=== PATIENT | male | born 1945 | race African-American/Black ===

== ENCOUNTER 2017-08-17 22:06 | Inpatient (IN) | payer OTHER, MEDICAID ==
[~2017-08-17] VITALS: Ht 177.8 cm; Wt 91.2 kg
[2017-08-18] VITALS (7 sets, daily range): BP systolic 107–137; BP diastolic 61–79
[2017-08-18] MEDS ORDERED: HYDROCODONE/ACETAMINOPHEN 5/325MG TABLET PO STA (00:05)
[2017-08-18] MEDS ORDERED: ASPIRIN 81MG TABLET PO ONE (00:15)
[2017-08-18] MEDS ORDERED: NITROGLYCERIN OINT 1GM/INCH UDPKT TD ONE (00:15)
[2017-08-18] MEDS ORDERED: LABETALOL HCL 20MG/4ML CARPUJECT IV ONE (00:15)
[2017-08-18] MEDS ORDERED: LABETALOL 5MG/ML SYR 20 MG/4 ML SYRINGE IV SCH (00:22)
[2017-08-18 01:07] LABS: HEMATOCRIT. 38.6 % (42.0-52.0); HEMOGLOBIN. 13.2 g/dL (14.0-18.0); MEAN CORPUSCULAR HEMOGLOBIN 32.5 pg (28.0-32.0); MEAN CORPUSCULAR VOLUME 95.1 fL (80.0-94.0); MEAN PLATELET VOLUME 10.5 fl (7.4-10.4); PLATELET 169 x1000/uL (130-400); RED BLOOD CELL COUNT 4.06 mill/uL (4.7-6.1); RED CELL DISTRIBUTION WIDTH 13.2 % (11.6-14.6)
[2017-08-18 01:12] LABS: CHLORIDE 101 mEq/L (98-107)
[2017-08-18 01:13] LABS: INR 1.1; PROTHROMBIN TIME 11.4 sec (9.4-11.6)
[2017-08-18 01:16] LABS: ETHANOL BLOOD < 10 mg/dL
[2017-08-18 01:23] LABS: PLATELET ESTIMATE NORMAL
[2017-08-18] MEDS ORDERED: HYDRALAZINE 20MG/ML VIAL IV SCH (01:44)
[2017-08-18 02:03] LABS: CLARITY URINE CLOUDY (CLEAR); COLOR URINE YELLOW (YELLOW); KETONES URINE NEGATIVE (NEGATIVE); LEUKOCYTE ESTERASE URINE NEGATIVE (NEGATIVE); NITRITE URINE NEGATIVE (NEGATIVE); OCCULT BLOOD URINE NEGATIVE (NEGATIVE); PH URINE 7.5 (4.5-8.0); PROTEIN URINE NEGATIVE (NEGATIVE); SPECIFIC GRAVITY URINE 1.012 (1.005-1.030); UROBILINOGEN URINE 0.2 E.U./dL (0.2-1.0)
[2017-08-18 02:22] LABS: *AMPHETAMINES SCREEN URINE NEGATIVE (NEGATIVE)
[2017-08-18 02:23] LABS: *BARBITURATES SCREEN URINE NEGATIVE (NEGATIVE)
[2017-08-18 02:25] LABS: *BENZODIAZEPINES SCREEN URINE NEGATIVE (NEGATIVE)
[2017-08-18 02:26] LABS: *COCAINE SCREEN URINE NEGATIVE (NEGATIVE)
[2017-08-18 02:29] LABS: METHADONE URINE SCREEN NEGATIVE (NEGATIVE)
[2017-08-18 02:30] LABS: OPIATES URINE SCREEN NEGATIVE (NEGATIVE)
[2017-08-18 02:32] LABS: PHENCYCLIDINE URINE SCREEN NEGATIVE (NEGATIVE)
[2017-08-18 02:33] LABS: CANNABINOID URINE SCREEN NEGATIVE (NEGATIVE)
[2017-08-18] MEDS ORDERED: COLC0.6T66 PO (07:30)
[2017-08-18] MEDS ORDERED: GABA-529 MT (07:30)
[2017-08-18] MEDS ORDERED: ATOR10TA MT (07:30)
[2017-08-18] MEDS ORDERED: LORA10TA7 PO (07:32)
[2017-08-18] MEDS ORDERED: TRIA1TAB92 PO ×2 (07:32→08:11)
[2017-08-18] MEDS ORDERED: PIOG30TA10 PO (07:32)
[2017-08-18] MEDS ORDERED: METF10002 PO (07:32)
[2017-08-18] MEDS ORDERED: LOSA50TA20 PO (07:33)
[2017-08-18] MEDS ORDERED: ALLO100T PO (07:35)
[2017-08-18] MEDS ORDERED: LORATADINE 10MG TABLET PO SCH (09:00)
[2017-08-18] MEDS ORDERED: TRAMADOL 50MG TABLET PO PRN (09:00)
[2017-08-18] MEDS ORDERED: COLCHICINE 0.6MG TABLET PO SCH (09:00)
[2017-08-18] MEDS ORDERED: ALLOPURINOL 100 MG TABLET PO SCH (09:00)
[2017-08-18] MEDS ORDERED: ENOXAPARIN 40MG/0.4ML SYR SUBCUT SCH (09:00)
[2017-08-18] MEDS ORDERED: LOSARTAN POTASSIUM 50 MG TABLET PO SCH (09:00)
[2017-08-18] MEDS ORDERED: PIOGLITAZONE 30MG TABLET PO SCH (09:00)
[2017-08-18] MEDS: GABAPENTIN 100MG CAPSULE PO SCH ×3 (09:04→17:00)
[2017-08-18] MEDS: BLOOD SUGAR DIAGNOSTIC STRIP TEST SCH ×2 (11:59→17:20)
[2017-08-18] MEDS ORDERED: COLCHICINE 0.6MG TABLET PO PRN (13:15)
[2017-08-18] MEDS ORDERED: METFORMIN HCL 500MG TABLET PO SCH (17:50)
[2017-08-18] MEDS ORDERED: ATORVASTATIN CALCIUM 10MG TABLET PO SCH (21:00)
== END 2017-08-18 17:20 | disposition home or self-care (01) | DRG 305 ==
LOC: ER 22:06 → 6WST 08-18 01:44 → EDBEDREQ 08-18 01:46 → ENRESERV 08-18 02:58
PROVIDERS: ADMIT Internal Medicine Pulmonary Disease; ATTEND Internal Medicine Pulmonary Disease
DX: I16.0 Hypertensive urgency (principal); E11.9 Type 2 diabetes mellitus without complications; E78.5 Hyperlipidemia, unspecified; I10 Essential (primary) hypertension; J45.909 Unspecified asthma, uncomplicated; M10.9 Gout, unspecified; N40.0 Benign prostatic hyperplasia without lower urinary tract symptoms; Z79.84 Long term (current) use of oral hypoglycemic drugs; Z79.899 Other long term (current) drug therapy; Z91.19 Patient's noncompliance with other medical treatment and regimen; Z84.1 Family history of disorders of kidney and ureter; Z84.89 Family history of other specified conditions
CPT/HCPCS: 36415; 70450; 71045; 74176; 80053; 80305; 81003; 82962; 83880; 84484; 85025; 85610; 93005; G0482; J0360; J1650; J3490

== ENCOUNTER 2024-10-07 16:32 | Emergency (ER) | payer OTHER, MEDICAID ==
[~2024-10-07] VITALS: Ht 177.8 cm; Wt 88.0 kg
[~2024-10-07 16:32] MED LIST: ALLO100T PO; ATOR10TA MT; COLC0.6T66 PO; GABA-529 MT; LORA10TA7 PO; LOSA50TA41 PO; METF-416 PO; PIOG30TA10 PO; TRIA1TAB92 PO
[2024-10-07 16:35] VITALS: O2SAT 100
[2024-10-07 17:03] VITALS: TEMP 36.9
[2024-10-07 18:06] LABS: BASOPHILS % 0.8 % (0.0-2.0); EOSINOPHILS % 1.6 % (0.0-5.0); HEMATOCRIT. 36.6 % (42.0-52.0); LYMPHOCYTES % 22.3 % (20.0-50.0); MEAN CORPUSCULAR HGB CONC 32.7 g/dL (31.0-37.0); MEAN CORPUSCULAR VOLUME 97.7 fL (80.0-94.0); MEAN PLATELET VOLUME 9.7 fl (7.4-10.4); MONOCYTES % 9.9 % (2.0-8.0); NEUTROPHILS % 65.4 % (40.0-76.0); PLATELET 162 x1000/uL (130-400); RED BLOOD CELL COUNT 3.74 mill/uL (4.7-6.1); RED CELL DISTRIBUTION WIDTH 14.4 % (11.6-14.6); WHITE BLOOD COUNT 5.2 x1000/uL (4.5-11.0)
[2024-10-07 18:16] LABS: CALCIUM 9.8 mg/dL (8.7-10.4)
[2024-10-07 18:21] LABS: CREATININE 1.5 mg/dL (0.6-1.3)
[2024-10-07] MEDS ORDERED: KETOROLAC 30MG/ML VIAL IM ONE (18:45)
[2024-10-07] MEDS ORDERED: PRED10TA PO (18:45)
[2024-10-07 18:59] VITALS: BP 149/84; PULSE 61; RESP 18; O2SAT 99
== END 2024-10-07 19:00 | disposition home or self-care (01) ==
LOC: ER 16:32
DX: M10.071 Idiopathic gout, right ankle and foot (principal); I10 Essential (primary) hypertension; E11.22 Type 2 diabetes mellitus with diabetic chronic kidney disease; J45.909 Unspecified asthma, uncomplicated; Z79.899 Other long term (current) drug therapy
CPT/HCPCS: 36415; 80048; 85025; 99283